=== PATIENT | female | born 1970 | race Caucasian/White ===

== ENCOUNTER 2018-06-23 10:19 | Observation (INO) | payer OTHER ==
[2018-06-23] MEDS: FAMOTIDINE 20 MG INJ IV (10:58)
[2018-06-23] MEDS: METHYLPREDNISOLONE 125 MG INJ IV (10:58)
[2018-06-23] MEDS: DIPHENHYDRAMINE 50 MG INJ IV ×2 (10:58→21:59)
[2018-06-23 10:59] LABS: ADD MAN DIFF? NO
[2018-06-23] MEDS: EPINEPHrine 1 MG INJ IM (10:59)
[2018-06-23 11:03] LABS: WHITE BLOOD COUNT 16.1 10^3/ul (4.8-10.8)
[2018-06-23 11:03] LABS: BASOPHIL # 0.1 10^3/ul (0.0-0.1); BASOPHILS % 0.7 % (0.0-2.0); EOSINOPHILS % 6.1 % (0.0-7.0); HEMOGLOBIN 14.7 g/dl (12.0-16.0); IMMATURE GRANS #M 0.35 10^3/ul; IMMATURE GRANS % (M) 2.2 %; LYMPHOCYTES # 4.6 10^3/ul (0.8-2.9); LYMPHOCYTES % 28.4 % (15.0-51.0); MEAN CORPUSCULAR HEMOGLOBIN 31.8 pg (29.0-33.0); MEAN CORPUSCULAR HGB CONC 34.2 g/dl (32.0-37.0); MEAN CORPUSCULAR VOLUME 93.1 fl (82.0-101.0); MEAN PLATELET VOLUME 10.9 fl (7.4-10.4); MONOCYTE # 1.1 10^3/ul (0.3-0.9); MONOCYTES % 6.5 % (0.0-11.0); NEUTROPHILS % 56.1 % (39.0-77.0); PLATELET COUNT 334 10^3/UL (140-415); RED BLOOD COUNT 4.62 10^6/ul (4.20-5.40); RED CELL DISTRIBUTION WIDTH 12.5 % (11.5-14.5)
[2018-06-23 11:20] LABS: ALANINE AMINOTRANSFERASE 31 IU/L (13-69); ALBUMIN 4.5 g/dl (3.3-4.9); ALKALINE PHOSPHATASE 48 IU/L (42-121); ANION GAP 16 (8-16); ASPARTATE AMINO TRANSFERASE 25 IU/L (15-46); BILIRUBIN,INDIRECT 0.8 mg/dl (0-1.1); BILIRUBIN,TOTAL 0.8 mg/dl (0.2-1.3); BLOOD UREA NITROGEN 14 mg/dl (7-20); CALCIUM 9.4 mg/dl (8.4-10.2); CARBON DIOXIDE 23 mmol/L (21-31); CHLORIDE 107 mmol/L (97-110); CREATINE KINASE 24 IU/L (23-200); CREATININE 0.94 mg/dl (0.44-1.00); GLUCOSE 88 mg/dl (70-220); POTASSIUM 3.5 mmol/L (3.5-5.1); SODIUM 142 mmol/L (135-144); TOTAL PROTEIN 7.7 g/dl (6.1-8.1)
[2018-06-23 11:22] LABS: INR 1.01; PROTIME 13.4 Sec (11.9-14.9)
[2018-06-23 11:23] LABS: PARTIAL THROMBOPLASTIN TIME 21.8 Sec (25.0-35.0)
[2018-06-23 11:33] LABS: B-TYPE NATRIURETIC PEPTIDE 57 PG/ML (0-125); CK INDEX 0.9; CK-MB < 0.22 ng/ml (0.0-2.4); TROPONIN-I < 0.010 ng/ml (0.000-0.120)
[2018-06-23 11:37] LABS: FREE THYROXINE INDEX (Calc) 3.34 ug/ml (0.65-3.89); T3 UPTAKE 35.2 % (23.5-40.5); T4 (THYROXINE) 9.5 ug/dl (5.5-11.0)
[2018-06-23 12:05] LABS: ADD UMIC YES; UR ASCORBIC ACID NEGATIVE (NEGATIVE); UR BACTERIA FEW /HPF (NONE SEEN); UR BILIRUBIN (Dip) NEGATIVE (NEGATIVE); UR BLOOD (Dip) 2+ mg/dL (NEGATIVE); UR CLARITY CLEAR (CLEAR); UR COLOR YELLOW (YELLOW); UR GLUCOSE (Dip) NEGATIVE (NEGATIVE); UR KETONES (Dip) NEGATIVE (NEGATIVE); UR LEUKOCYTE ESTERASE (Dip) NEGATIVE Leu/ul (NEGATIVE); UR MUCUS FEW /HPF (NONE SEEN); UR NITRITE (Dip) NEGATIVE (NEGATIVE); UR RBC 2 /HPF (0-5); UR SPECIFIC GRAVITY (Dip) 1.009 (1.003-1.030); UR SQUAMOUS EPITHELIAL CELL FEW /HPF (FEW); UR TOTAL PROTEIN (Dip) NEGATIVE (NEGATIVE); UR UROBILINOGEN (Dip) NEGATIVE (NEGATIVE); UR WBC 2 /HPF (0-5)
[2018-06-23] MEDS: IOHEXOL 300MG/ML 150 ML BTL (13:30)
[2018-06-23] MEDS: SOD CHLORIDE 0.9% 100 ML (13:30)
[2018-06-23] MEDS ORDERED: ACETAMINOPHEN 325 MG TAB PO (14:00)
[2018-06-23] MEDS ORDERED: ONDANSETRON 4 MG INJ IV ×2 (14:00→14:30)
[2018-06-23] MEDS ORDERED: NITROGLYCERIN (SL) 0.4 MG TAB SL (14:30)
[2018-06-23] MEDS ORDERED: NACL 0.9% 3 ML SYG IV (14:30)
[2018-06-23] MEDS ORDERED: DOCUSATE SODIUM 100 MG CAP PO (14:30)
[2018-06-23] MEDS ORDERED: DIPHENHYDRAMINE 50 MG CAP PO (14:30)
[2018-06-23] MEDS ORDERED: LORAZEPAM 2 MG INJ IV (18:30)
[2018-06-23] MEDS: LORAZEPAM 0.5 MG TAB PO (23:54)
[2018-06-24] MEDS: DIPHENHYDRAMINE 50 MG INJ IV (04:11)
[2018-06-24 06:38] LABS: ADD MAN DIFF? NO
[2018-06-24 06:47] LABS: WHITE BLOOD COUNT 21.2 10^3/ul (4.8-10.8)
[2018-06-24 06:47] LABS: ABNORMAL IP MESSAGE 1; BASOPHIL # 0.1 10^3/ul (0.0-0.1); BASOPHILS % 0.3 % (0.0-2.0); EOSINOPHILS # 0.1 10^3/ul (0.0-0.5); EOSINOPHILS % 0.5 % (0.0-7.0); HEMATOCRIT 40.7 % (37.0-47.0); HEMOGLOBIN 13.8 g/dl (12.0-16.0); IMMATURE GRANS #M 0.31 10^3/ul; IMMATURE GRANS % (M) 1.5 %; LYMPHOCYTES # 3.3 10^3/ul (0.8-2.9); LYMPHOCYTES % 15.7 % (15.0-51.0); MEAN CORPUSCULAR HEMOGLOBIN 31.5 pg (29.0-33.0); MEAN CORPUSCULAR HGB CONC 33.9 g/dl (32.0-37.0); MEAN CORPUSCULAR VOLUME 92.9 fl (82.0-101.0); MEAN PLATELET VOLUME 11.1 fl (7.4-10.4); MONOCYTE # 1.8 10^3/ul (0.3-0.9); MONOCYTES % 8.3 % (0.0-11.0); NEUTROPHIL # 15.7 10^3/ul (1.6-7.5); NEUTROPHILS % 73.7 % (39.0-77.0); PLATELET COUNT 321 10^3/UL (140-415); RED BLOOD COUNT 4.38 10^6/ul (4.20-5.40); RED CELL DISTRIBUTION WIDTH 12.4 % (11.5-14.5)
[2018-06-24 06:49] LABS: POSITIVE DIFF @See below
[2018-06-24 07:08] LABS: ANION GAP 16 (8-16); BLOOD UREA NITROGEN 14 mg/dl (7-20); CALCIUM 9.5 mg/dl (8.4-10.2); CARBON DIOXIDE 22 mmol/L (21-31); CHLORIDE 108 mmol/L (97-110); CREATININE 0.79 mg/dl (0.44-1.00); GLUCOSE 112 mg/dl (70-220); MAGNESIUM 2.1 mg/dl (1.7-2.5); POTASSIUM 4.1 mmol/L (3.5-5.1); SODIUM 142 mmol/L (135-144)
[2018-06-24] MEDS: FAMOTIDINE 20 MG TAB PO (08:20)
[2018-06-24] MEDS: ACETAMINOPHEN 325 MG TAB PO (10:10)
[2018-06-24] MEDS: METHYLPREDNISOLONE 125 MG INJ IV (10:11)
[2018-06-24] MEDS: EPINEPHrine 1 MG INJ IM (10:45)
== END 2018-06-24 15:30 | disposition home or self-care (01) ==
LOC: E/R 10:19 → 6WM 13:51
DX: R55 Syncope and collapse (principal); R21 Rash and other nonspecific skin eruption; M85.08 Fibrous dysplasia (monostotic), other site; I10 Essential (primary) hypertension; K21.9 Gastro-esophageal reflux disease without esophagitis; R42 Dizziness and giddiness; L50.9 Urticaria, unspecified; R03.0 Elevated blood-pressure reading, without diagnosis of hypertension
CPT/HCPCS: 70450; 70486; 72020; 80048; 80053; 81001; 82550; 82553; 83735; 83880; 84436; 84479; 84484; 85025; 85610; 85730; 93005; 96372; 96374; 96375; 99217; 99285-25; G0378

== ENCOUNTER 2018-09-14 17:48 | Emergency (ER) | payer SELFPAY, OTHER | END 2018-09-14 20:46 | disposition left against medical advice (07) | LOC: E/R 17:48 | DX: Z53.21 Procedure and treatment not carried out due to patient leaving prior to being seen by health care provider (principal) ==